=== PATIENT | female | born 1965 | race Caucasian/White ===

== ENCOUNTER 2016-08-04 20:57 | Emergency (ER) | payer OTHER ==
[~2016-08-04] VITALS: Ht 170.2 cm; Wt 117.6 kg
[2016-08-04 21:02] VITALS: BP 128/80
== END 2016-08-04 22:26 | disposition left against medical advice (07) ==
LOC: ED 22:20
DX: R50.9 Fever, unspecified (principal)
CPT/HCPCS: 99281